=== PATIENT | male | born 1995 | race African-American/Black ===

== ENCOUNTER 2017-02-04 03:08 | Emergency (ER) | payer MEDICAID ==
[~2017-02-04] VITALS: Ht 188 cm; Wt 90.7 kg
[~2017-02-04 03:08] MED LIST: IBUPROFEN600 MG ORAL
[2017-02-04 03:42] VITALS: BP 121/65
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
[2017-02-04] MEDS ORDERED: ROBAXIN500 MG PO (04:08)
[2017-02-04] MEDS ORDERED: IBUPROFEN600 MG ORAL (04:08)
[2017-02-04 05:25] VITALS: BP 121/65
== END 2017-02-04 04:45 | disposition home or self-care (01) ==
LOC: EMR 03:35
DX: S39.012A Strain of muscle, fascia and tendon of lower back, initial encounter (principal); X50.0XXA Overexertion from strenuous movement or load, initial encounter; Y92.69 Other specified industrial and construction area as the place of occurrence of the external cause; Y99.0 Civilian activity done for income or pay; J45.909 Unspecified asthma, uncomplicated; M62.830 Muscle spasm of back
CPT/HCPCS: 99284

== ENCOUNTER 2017-09-22 14:25 | Emergency (ER) | payer MEDICAID ==
[~2017-09-22] VITALS: Ht 190.5 cm; Wt 90.7 kg
[~2017-09-22 14:25] MED LIST changes: +ROBAXIN500 MG PO
--- NOTE | 2017-09-22 15:26 | Diagnostic Imaging Report ---
Indication: Pain Comparison: None Findings: 3 views of the left foot were obtained. No acute fractures, malalignment, erosions or periostitis are identified. Soft tissues are unremarkable. Impression: No acute findings
--- NOTE | 2017-09-22 15:43 | Emergency Room Report ---
History of Present Illness General Chief Complaint: Lower Extremity Injury Present Illness HPI 21-year-old male presents to the emergency department complaining of 8 out of 10 in severity localized left foot pain with swelling and bruising times one day. Patient states that he is playing football and another player stepped on his foot and he fell to the ground. Patient denies hitting his head he denies loss of consciousness he denies neck or back pain. Patient reports pain exacerbated upon weight-bearing and walking. He states he is currently using crutches to ambulate. He denies previous injury to the extremity.Denies numbness tingling or loss of sensation or gross motor movements of the extremities, incontinence of bowel or bladder. Denies CP, Palpitations, LOC, AMS , dizziness, Changes in Vision, Sensation, paresthesias, or a sudden severe headache. Allergies: Coded Allergies: No Known Allergies (Unverified , 10/21/15) Patient History Past Medical History: see triage record Past Surgical History: none Pertinent Family History: none Reviewed Nursing Documentation: PMH: Agreed; PSxH: Agreed Nursing Documentation-PMH Hx Asthma: Yes Review of Systems All Other Systems: negative except mentioned in HPI Physical Exam Vital Signs Date Time Temp Pulse Resp B/P (MAP) Pulse Ox O2 Delivery O2 Flow Rate FiO2 09/22/17 14:29 97.6 67 20 131/68 99 Room Air 97.5 Sp02 EP Interpretation: reviewed, normal General Appearance: alert, GCS 15, non-toxic, mild distress Head: normocephalic, atraumatic ENT: hearing grossly normal, normal voice Neck: full range of motion, no bony tend Respiratory: lungs clear, normal breath sounds, speaking full sentences Cardiovascular #1: regular rate, rhythm, normal capillary refill Musculoskeletal: back normal, normal range of motion, tender - left foot dorsal swelling and ttp, also base of the left great toe swollen, contusion noted. Neurologic: alert, oriented x3, responsive, motor strength/tone normal, sensory intact, speech normal, grossly normal Psychiatric: judgement/insight normal Skin: normal color, no rash, warm/dry, well hydrated Lymphatic: no adenopathy Medical Decision Making PA Attestation Dr. Watson is my supervising Physician whom patient management has been discussed with. Diagnostic Impression: Primary Impression: Contusion of foot, left Qualified Codes: S90.32XA - Contusion of left foot, initial encounter Additional Impression: Sprain of left foot Qualified Codes: S93.602A - Unspecified sprain of left foot, initial encounter ER Course 21-year-old male presents to the emergency department complaining of 8 out of 10 in severity localized left foot pain with swelling and bruising times one day. Patient states that he is playing football and another player stepped on his foot and he fell to the ground. Patient denies hitting his head he denies loss of consciousness he denies neck or back pain. Patient reports pain exacerbated upon weight-bearing and walking. He states he is currently using crutches to ambulate. He denies previous injury to the extremity.Denies numbness tingling or loss of sensation or gross motor movements of the extremities, incontinence of bowel or bladder. Denies CP, Palpitations, LOC, AMS , dizziness, Changes in Vision, Sensation, paresthesias, or a sudden severe headache. Ddx considered but are not limited to Fracture, dislocation, contusion, Sprain/ Strain/Spasm,. Vital signs: are WNL, pt. is afebrile H&PE are most consistent with musculoskeletal injury will perform imaging to r/ o fractures/dislocations. - left foot dorsal swelling and ttp, also base of the left great toe swollen, contusion noted. ORDERS: - X-ray left foot - negative for fx, Dislocation, or significant soft tissue injury, per preliminary read in ED, and signed by HÉCTOR Bowden, my supervising physician has reviewed, and agrees with my interpretation. ED INTERVENTIONS: - [place] -[place] wrap applied to the left foot by materials mgmt tech. Pt. remains neurovascularly intact. DISCHARGE: At this time pt. is stable for d/c to home. Will provide printed patient care instructions, and any necessary prescriptions. Care plan and follow up instructions have been discussed with the patient prior to discharge. Other X-Ray Diagnostic Results Other X-Ray Diagnostic Results : X-Ray ordered: left foot # of Views/Limited Vs Complete: 3 View Indication: Pain EP Interpretation: Yes HÉCTOR Xray: Interpretation reviewed, by supervising MD, and agrees with findings. Interpretation: no dislocation, no soft tissue swelling, no fractures Impression: No acute disease Electronically Signed by: Jen Bowden PA-C Last Vital Signs Date Time Temp Pulse Resp B/P (MAP) Pulse Ox O2 Delivery O2 Flow Rate FiO2 09/22/17 14:29 97.6 67 20 131/68 99 Room Air 97.5 Disposition: HOME, SELF-CARE Condition: Stable Scripts Diclofenac Sod* (VOLTAREN*) 50 Mg Tablet.dr 50 MG ORAL THREE TIMES A DAY, #21 TAB Prov: Jen Bowden 09/22/17 Referrals: [facility]ERR[facility] (PCP) Departure Forms: Return to School Return to School On: September 23, 2017 School Release Restrictions: No Sports or PE Other School Release Restrictions: No sports or PE x 1 week Return to Full Activity: September 30, 2017 Patient Instructions: Foot Contusion, Foot Sprain Additional Instructions: Take medications as directed. Follow up with a Primary Care Provider in 3-5 days, even if your symptoms have resolved. --Please review list of primary care clinics, if you do not already have a primary care provider Return sooner to ED if new symptoms occur, or current symptoms become worse. - Please note that this Emergency Department Report was dictated using [employer] drafter technology software, occasionally this can lead to erroneous entry secondary to interpretation by the dictation equipment. Jen Bowden September 22, 2017 15:43
[2017-09-22] MEDS ORDERED: DICLOFENAC SODI50 MG ORAL (15:44)
[2017-09-22] MEDS ORDERED: HYDROcodone/Acetamin 7.5/325 tab ORAL ONE (15:45)
[2017-09-22 16:00] VITALS: BP 134/71
== END 2017-09-22 16:00 | disposition home or self-care (01) ==
LOC: EMR 14:55
DX: S93.602A Unspecified sprain of left foot, initial encounter (principal); W19.XXXA Unspecified fall, initial encounter; Y93.61 Activity, american tackle football; Y92.9 Unspecified place or not applicable; J45.909 Unspecified asthma, uncomplicated
CPT/HCPCS: 99283